=== PATIENT | female | born 1945 | race Caucasian/White ===

== ENCOUNTER 2023-07-03 23:35 | Outpatient (CLI) | payer MEDICARE, OTHER | END 2023-07-03 23:36 | disposition critical access hospital (66) | LOC: EMS 23:35 | DX: R07.9 Chest pain, unspecified (principal) | CPT/HCPCS: A0425; A0427 ==

== ENCOUNTER 2023-07-04 00:05 | Emergency (ER) | payer MEDICARE, OTHER ==
[2023-07-04 00:26] LABS: BASOPHILS # (AUTO) 0.1 10^3/uL (0.0-0.1); BASOPHILS % (AUTO) 0.9 %; EOSINOPHILS # (AUTO) 0.3 10^3/uL (0.0-0.7); EOSINOPHILS % (AUTO) 2.8 %; HCT - HEMATOCRIT 42.9 % (37.0-47.0); HGB - HEMOGLOBIN 13.1 g/dL (12.0-16.0); LYMPHOCYTES # (AUTO) 2.6 10^3/uL (1.5-3.5); LYMPHOCYTES % (AUTO) 29.2 %; MEAN CORPUSCULAR HEMOGLOBIN 29.3 pg (27.0-31.0); MEAN CORPUSCULAR HGB CONC 30.5 g/dL (32.0-36.0); MEAN PLATELET VOLUME 9.3 fL (7.9-10.8); MONOCYTES # (AUTO) 0.9 10^3/uL (0.0-1.0); MONOCYTES % (AUTO) 9.5 %; NEUTROPHILS # (AUTO) 5.2 10^3/uL (1.5-6.6); NEUTROPHILS % (AUTO) 57.3 %; PLT - PLATELET COUNT 283 10^3/uL (130-450); RED BLOOD COUNT 4.47 10^6/uL (4.20-5.40); RED CELL DISTRIBUTION WIDTH 13.5 % (12.0-15.0)
[2023-07-04] MEDS ORDERED: NITROGLYCERIN SL 0.4 MG TABLET SL PRN (00:37)
--- NOTE | 2023-07-04 00:42 | XRAY Report ---
PROCEDURE: Chest 1V INDICATIONS: Chest pain TECHNIQUE: One view of the chest was acquired. COMPARISON: None. FINDINGS: Surgical changes and devices: None. Lungs and pleura: No pleural effusions or pneumothorax. Lungs are clear. Mediastinum: Mediastinal contours appear normal. Heart size is normal. Bones and chest wall: Dystrophic appearance of the left fourth rib. No periosteal reaction. IMPRESSION: No acute cardiopulmonary process. Dystrophic appearance of the left fourth rib, without periosteal reaction. 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 Correlate with pain; if present, consider nonurgent M RI with contrast to exclude other malignant process. Reviewed by: Abhinav Stewart MD on 07/04/2023 12:41 AM PDT Approved by: Abhinav Stewart MD on 07/04/2023 12:41 AM PDT Station ID: [id number]
[2023-07-04 00:53] LABS: ALBUMIN 3.9 g/dL (3.2-5.5); ALBUMIN/GLOBULIN RATIO 1.6 (1.0-2.2); BILIRUBIN,TOTAL 0.4 mg/dL (0.2-1.0); CALCIUM 9.5 mg/dL (8.5-10.3); POTASSIUM 4.2 mmol/L (3.5-4.5); TOTAL PROTEIN 6.3 g/dL (6.4-8.9)
[2023-07-04 01:39] LABS: TROPONIN I HIGH SENSITIVITY 3.1 ng/L (2.3-14.8)
--- NOTE | 2023-07-04 02:27 | ED Physician Documentation ---
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 Patient reports pain started around 11:00 PM as she was working on some paperwork. There is no radiation to the pain. She did take aspirin. EMS gave 2 nitroglycerin. She denies any known exacerbating or alleviating factors. She does report having dull pain 2 days ago lasting approximately 40 minutes. Otherwise has not had other episodes of chest pain. She did recently have COVID in May while she was in [place].At times she has felt short of air. She did recently have a checkup at the [facility] cardiology clinic with an echocardiogram. She has had a prior stress test but it has been some years. She denies history of prior cardiac catheterization. She does have a history of high blood pressure and hyperlipidemia. Denies history of diabetes. Review of Systems Constitutional: denies: Fever Cardiac: reports: Chest pain / pressure Respiratory: reports: Dyspnea. denies: Cough GI: denies: Abdominal Pain : denies: Dysuria Musculoskeletal: denies: Extremity pain PD PAST MEDICAL HISTORY - Past Medical History Past Medical History: Yes - Past Surgical History Past Surgical History: Yes - Present Medications Home Medications: Ambulatory Orders Medication Instructions Recorded Confirmed Ascorbic Acid/Ascorbate Sodium 500 mg PO DAILY 07/04/23 07/04/23 [Vitamin C 500 mg Tablet Chew] Aspirin [[place] Aspirin] 364 mg PO PRN PRN 07/04/23 07/04/23 Atorvastatin [Lipitor] 10 mg PO DAILY 07/04/23 07/04/23 Calcium Carbonate/Vitamin D3 1 each PO DAILY 07/04/23 07/04/23 [Calcium 600-Vit D3 800 Tablet] Carboxymethylcellulose Sodium 1 each OP PRN PRN 07/04/23 07/04/23 [Refresh Plus] Cholecalciferol (Vitamin D3) 50 mcg PO DAILY 07/04/23 07/04/23 [Vitamin D3] Estradiol [Estrace] 42.5 gm VG ONCE 07/04/23 07/04/23 Gabapentin [Neurontin] 100 mg PO TID 07/04/23 07/04/23 Gabapentin [Neurontin] 300 mg PO TID 07/04/23 07/04/23 Levothyroxine [Synthroid] 100 mcg PO QDAC 07/04/23 07/04/23 Omeprazole 20 mg PO BID 07/04/23 07/04/23 Valsartan [Diovan] 160 mg PO QPM 07/04/23 07/04/23 - Allergies Allergies/Adverse Reactions: Allergies Allergy/AdvReac Type Severity Reaction Status Date / Time duloxetine [From Cymbalta] AdvReac Nausea Verified 07/04/23 00:50 meperidine [From Demerol] AdvReac Nausea Verified 07/04/23 00:50 venlafaxine AdvReac Nausea Verified 07/04/23 00:50 - Social History Does the pt smoke?: No Smoking Status: Never smoker Does the pt drink ETOH?: No Does the pt have substance abuse?: No - Immunizations Immunizations are current?: Yes PD ED PE NORMAL - General General: Alert and oriented X 3, No acute distress, Well developed/nourished - HEENT HEENT: Atraumatic - Neck Neck: Supple, no meningeal sign - Cardiac Cardiac: RRR, Strong equal pulses - Respiratory Respiratory: No respiratory distress, Clear bilaterally - Abdomen Abdomen: Soft, Non tender, Non distended - Derm Derm: Warm and dry - Extremities Extremities: No edema - Neuro Neuro: Alert and oriented X 3, Normal speech Results - Vitals Vitals: Vital Signs - 24 hr 07/04/23 07/04/23 07/04/23 00:09 00:13 00:30 Temperature 36.8 C 36.8 C Heart Rate 62 62 66 Respiratory 18 18 14 Rate Blood Pressure 147/63 H 147/63 H O2 Saturation 98 98 97 07/04/23 07/04/23 07/04/23 01:00 01:30 02:00 Temperature Heart Rate 66 63 64 Respiratory 12 16 14 Rate Blood Pressure 121/56 L 129/59 L O2 Saturation 97 96 97 07/04/23 07/04/23 07/04/23 02:30 03:00 03:30 Temperature Heart Rate 61 61 60 Respiratory 14 14 14 Rate Blood Pressure 129/62 120/57 L 129/61 O2 Saturation 98 97 96 07/04/23 03:50 Temperature Heart Rate 64 Respiratory 16 Rate Blood Pressure O2 Saturation 98 Oxygen O2 Source Room air - EKG (time done) 1213 EKG releavant findings:: EKG personally interpreted by author of this note. Relevant findings are: Rate 61, normal sinus rhythm, left bundle branch block, No STEMI, left bundle branch block seen on prior EKG in the care everywhere from [facility] 06/15/2023 - Labs Labs: Laboratory Tests 07/04/23 07/04/23 07/04/23 00:17 00:17 01:32 WBC 9.0 RBC 4.47 Hgb 13.1 Hct 42.9 MCV 96.0 MCH 29.3 MCHC 30.5 L RDW 13.5 Plt Count 283 MPV 9.3 Neut # (Auto) 5.2 Lymph # (Auto) 2.6 [place] # (Auto) 0.9 Eos # (Auto) 0.3 Baso # (Auto) 0.1 Absolute Nucleated RBC 0.00 Nucleated RBC % 0.0 D-Dimer < 200.0 L Sodium 139 Potassium 4.2 Chloride 107 Carbon Dioxide 26 Anion Gap 6.0 BUN 16 Creatinine 1.0 Estimated GFR (MDRD) 54 L Glucose 131 H Calcium 9.5 Total Bilirubin 0.4 AST 15 ALT 10 Alkaline Phosphatase 56 Troponin I High Sens 3.1 Total Protein 6.3 L Albumin 3.9 Globulin 2.4 Albumin/Globulin Ratio 1.6 Lipase 58 07/04/23 02:42 WBC RBC Hgb Hct MCV MCH MCHC RDW Plt Count MPV Neut # (Auto) Lymph # (Auto) Foster # (Auto) Eos # (Auto) Baso # (Auto) Absolute Nucleated RBC Nucleated RBC % D-Dimer Sodium Potassium Chloride Carbon Dioxide Anion Gap BUN Creatinine Estimated GFR (MDRD) Glucose Calcium Total Bilirubin AST ALT Alkaline Phosphatase Troponin I High Sens 4.0 Total Protein Albumin Globulin Albumin/Globulin Ratio Lipase PD Medical Decision Making - ED course Complexity details: reviewed results, re-evaluated patient, d/w patient ED course: Patient is a 77-year-old female presenting for evaluation of chest pain. She does have a history of coarctation of the aorta. EKG is reviewed and nonischemic. CBC, chemistry, D-dimer and troponin were obtained and without significant findings. Patient was pain-free here. Repeat troponin after 2 hours remained unchanged. She is able to ambulate here without any difficulty. Heart score is 4 based on age and risk factors. Vital signs have been stable. 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 0226 - Patient resting comfortably with no pain. Has not required any doses of nitroglycerin here.Reviewed workup thus far including negative high-sensitivity troponin and negative D-dimer. Also reviewed irregularity seen on patient's chest x-ray involving the fourth rib. Patient states she has been told about this before and is able to pull up an old x-ray read on her phone. She states that this is from her prior thoracic surgery when she was a child. I did give her a copy of her chest x-ray report and explained that our radiologist was concerned it could be a type of benign tumor. Departure - Departure Disposition: 01 Home, Self Care Clinical Impression: Chest pain, Abnormal chest xray Condition: Stable Instructions: ED Chest Pain Atypical Unkn Cause Follow-Up: Elizabeth Carmona MD [Physician No Access] - Comments: You were evaluated this evening for chest pain. Your testing tonight does not show signs of heart attack or blood clot in your lungs. There was an ir regularity noticed on your chest x-ray. As we do not have any prior for comparison there is unclear whether this is a new finding or not. I would recommend close follow-up with your food production machine operator as you may need further testing such as a stress test. If you develop any worsening symptoms please return to the emergency department. IMPRESSION: No acute cardiopulmonary process. Dystrophic appearance of the left fourth rib, without periosteal reaction. 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 Correlate with pain; if present, consider nonurgent MRI with contrast to exclude other malignant process. Forms: PCP List Discharge Date/Time: 07/04/23 03:50
[2023-07-04 04:05] VITALS: BP 129/61
[2023-07-04 04:25] VITALS: O2SAT 98
== END 2023-07-04 03:50 | disposition home or self-care (01) ==
LOC: ED 00:05
DX: R07.9 Chest pain, unspecified (principal); R91.8 Other nonspecific abnormal finding of lung field; Q25.1 Coarctation of aorta; Z79.82 Long term (current) use of aspirin; Z79.899 Other long term (current) drug therapy
CPT/HCPCS: 36415; 80053; 83690; 84484; 85025; 85379; 93005; 99283; 99284

== ENCOUNTER 2023-11-07 13:53 | Outpatient (CLI) | payer MEDICARE, OTHER | END 2023-11-07 23:59 | disposition critical access hospital (66) | LOC: EMS 13:53 | DX: R55 Syncope and collapse (principal) | CPT/HCPCS: A0425; A0429 ==

== ENCOUNTER 2023-11-07 14:24 | Emergency (ER) | payer MEDICARE, OTHER ==
--- NOTE | 2023-11-07 15:20 | ED Physician Documentation ---
History of Present Illness - Stated complaint Stated Complaint: NEAR SYNCOPE - Chief complaint Chief Complaint: Neuro - History obtained from History obtained from: Patient, EMS - History of Present Illness Timing: Today Pain level max: 0 Pain level now: 0 - Additonal information Additional information: 78 year old female states that she was eating breakfast today around 1pm. She states she felt lightheaded, dizzy and like she was going to pass out. she took her BP and systolic was in the 70's. She called 911 and was brought here. No chest pain. Feels normal now. Has a heart monitor in place. She states that she has been checking her blood pressure at home. She does have a history of a left bundle branch block. Review of Systems Constitutional: denies: Fever, Chills Respiratory: denies: Cough GI: denies: Vomiting, Diarrhea Skin: denies: Rash Musculoskeletal: denies: Neck pain, Back pain Neurologic: denies: Headache PD PAST MEDICAL HISTORY - Past Medical History Past Medical History: Yes Cardiovascular: Other - Past Surgical History Past Surgical History: Yes - Present Medications Home Medications: Ambulatory Orders Medication Instructions Recorded Confirmed Ascorbic Acid/Ascorbate Sodium 500 mg PO DAILY 07/04/23 07/04/23 [Vitamin C 500 mg Tablet Chew] Aspirin [[place] Aspirin] 364 mg PO PRN PRN 07/04/23 07/04/23 Atorvastatin [Lipitor] 10 mg PO DAILY 07/04/23 07/04/23 Calcium Carbonate/Vitamin D3 1 each PO DAILY 07/04/23 07/04/23 [Calcium 600-Vit D3 800 Tablet] Carboxymethylcellulose Sodium 1 each OP PRN PRN 07/04/23 07/04/23 [Refresh Plus] Cholecalciferol (Vitamin D3) 50 mcg PO DAILY 07/04/23 07/04/23 [Vitamin D3] Estradiol [Estrace] 42.5 gm VG ONCE 07/04/23 07/04/23 Gabapentin [Neurontin] 100 mg PO TID 07/04/23 07/04/23 Gabapentin [Neurontin] 300 mg PO TID 07/04/23 07/04/23 Levothyroxine [Synthroid] 100 mcg PO QDAC 07/04/23 07/04/23 Omeprazole 20 mg PO BID 07/04/23 07/04/23 Valsartan [Diovan] 160 mg PO QPM 07/04/23 07/04/23 - Allergies Allergies/Adverse Reactions: Allergies Allergy/AdvReac Type Severity Reaction Status Date / Time duloxetine [From Cymbalta] AdvReac Nausea Verified 11/07/23 14:43 meperidine [From Demerol] AdvReac Nausea Verified 11/07/23 14:43 venlafaxine AdvReac Nausea Verified 11/07/23 14:43 - Social History Does the pt smoke?: No Smoking Status: Never smoker Does the pt drink ETOH?: No Does the pt have substance abuse?: No - Immunizations Immunizations are current?: Yes PD ED PE NORMAL - Vitals Vital signs reviewed: Yes - General General: Alert and oriented X 3, No acute distress - HEENT HEENT: PERRL, Moist mucous membranes - Neck Neck: Supple, no meningeal sign - Cardiac Cardiac: RRR, No murmur, Strong equal pulses - Respiratory Respiratory: No respiratory distress, Clear bilaterally - Abdomen Abdomen: Soft, Non tender, Non distended - Derm Derm: Warm and dry - Extremities Extremities: No edema, No calf tenderness / cord - Neuro Neuro: Alert and oriented X 3 - Psych Psych: Normal mood, Normal affect Results - Vitals Vitals: Vital Signs - 24 hr 11/07/23 11/07/23 11/07/23 14:43 16:46 18:00 Temperature 36.8 C 36.5 C 36.5 C Heart Rate 66 62 60 Respiratory 16 16 16 Rate Blood Pressure 129/66 133/61 H 130/60 O2 Saturation 100 99 100 Oxygen O2 Source Room air - EKG (time done) 1532 EKG releavant findings:: EKG personally interpreted by author of this note. Relevant findings are: Rate: Rate (enter#) (63) Rhythm: NSR, SANDIP [place]: Normal Intervals: Normal NC QRS: Normal Ischemia: Normal ST segments, Q waves (v1-3) - Labs Labs: Laboratory Tests 11/07/23 11/07/23 11/07/23 15:19 15:19 17:23 WBC 11.0 H RBC 4.94 Hgb 14.7 Hct 47.4 H MCV 96.0 MCH 29.8 MCHC 31.0 L RDW 13.2 Plt Count 259 MPV 9.3 Neut # (Auto) 8.9 H Lymph # (Auto) 1.3 L [place] # (Auto) 0.6 Eos # (Auto) 0.1 Baso # (Auto) 0.1 Absolute Nucleated RBC 0.00 Nucleated RBC % 0.0 Sodium 140 Potassium 4.1 Chloride 103 Carbon Dioxide 33 H Anion Gap 4.0 L BUN 16 Creatinine 0.9 Estimated GFR (MDRD) 61 L Glucose 127 H Calcium 10.0 Total Bilirubin 0.6 AST 16 ALT 13 Alkaline Phosphatase 65 Troponin I High Sens 3.2 3.4 Total Protein 6.7 Albumin 4.2 Globulin 2.5 Albumin/Globulin Ratio 1.7 Lipase 34 - Rads (name of study) cxr Relevant Findings:: Final report received, See rad report PD Medical Decision Making - ED course Complexity details: reviewed results, re-evaluated patient, considered differential (No ST elevation ND, no aortic dissection, no PE, no tension pneumothorax, no aortic aneurysm), d/w patient ED course: Patient is well-appearing, nontoxic. Afebrile. No chest pain. No evidence of PE clinically. No calf tenderness or swelling. No pleuritic chest pain. No hypoxia. No tachycardia. No evidence of ACS. Negative high sensitive troponin x 2. Hypotension with near syncope while standing, consistent with orthostatic hypotension. Feels better after IV fluids here. We will have her follow-up with her doctor for further care. Patient counseled regarding signs and symptoms for which I believe and urgent re-evaluation would be necessary. Patient with good understanding of and agreement to plan and is comfortable goi ng home at this time This document was made in part using voice recognition software. While efforts are made to proofread this document, sound alike and grammatical errors may occur. Departure - Departure Disposition: 01 Home, Self Care Clinical Impression: Orthostatic hypotension, Near syncope Condition: Good Instructions: ED Hypotension Orthostatic, ED Near Syncope Unkn Follow-Up: your,doctor in 1 week [Other] Comments: Please follow-up with your doctor for further care. Make sure you are drinking plenty of fluids at home. Continue current medications. Please return if you worsen. Forms: PCP List Discharge Date/Time: 11/07/23 18:22
[2023-11-07 15:28] LABS: BASOPHILS # (AUTO) 0.1 10^3/uL (0.0-0.1); BASOPHILS % (AUTO) 0.7 %; EOSINOPHILS # (AUTO) 0.1 10^3/uL (0.0-0.7); EOSINOPHILS % (AUTO) 0.6 %; HCT - HEMATOCRIT 47.4 % (37.0-47.0); HGB - HEMOGLOBIN 14.7 g/dL (12.0-16.0); LYMPHOCYTES # (AUTO) 1.3 10^3/uL (1.5-3.5); LYMPHOCYTES % (AUTO) 11.7 %; MEAN CORPUSCULAR HEMOGLOBIN 29.8 pg (27.0-31.0); MEAN PLATELET VOLUME 9.3 fL (7.9-10.8); MONOCYTES # (AUTO) 0.6 10^3/uL (0.0-1.0); MONOCYTES % (AUTO) 5.8 %; NEUTROPHILS # (AUTO) 8.9 10^3/uL (1.5-6.6); NEUTROPHILS % (AUTO) 80.8 %; PLT - PLATELET COUNT 259 10^3/uL (130-450); RED BLOOD COUNT 4.94 10^6/uL (4.20-5.40); RED CELL DISTRIBUTION WIDTH 13.2 % (12.0-15.0)
--- NOTE | 2023-11-07 15:34 | XRAY Report ---
PROCEDURE: Chest 1V INDICATIONS: Chest Pain TECHNIQUE: One view of the chest was acquired. COMPARISON: 07/04/2023. FINDINGS: Surgical changes and devices: None. Lungs and pleura: No pleural effusions or pneumothorax. Lungs are clear. Mediastinum: Mediastinal contours appear normal. Heart size is normal. Bones and chest wall: No suspicious bony lesions. Overlying soft tissues appear unremarkable. IMPRESSION: No acute cardiopulmonary process. Reviewed by: Santana Malik MD on 11/07/2023 3:33 PM PDT Approved by: Santana Malik MD on 11/07/2023 3:33 PM PDT Station ID: [id number]
[2023-11-07 15:40] LABS: ALBUMIN 4.2 g/dL (3.2-5.5); ALBUMIN/GLOBULIN RATIO 1.7 (1.0-2.2); BILIRUBIN,TOTAL 0.6 mg/dL (0.2-1.0); CREATININE 0.9 mg/dL (0.6-1.3); POTASSIUM 4.1 mmol/L (3.5-4.5); TOTAL PROTEIN 6.7 g/dL (6.4-8.9)
[2023-11-07] MEDS: SODIUM CHLORIDE 0.9% 1,000 ML IV STA (15:40)
[2023-11-07 15:44] LABS: TROPONIN I HIGH SENSITIVITY 3.2 ng/L (2.3-14.8)
[2023-11-07 18:24] VITALS: BP 130/60; O2SAT 100
== END 2023-11-07 18:22 | disposition home or self-care (01) ==
LOC: EDUNIT# → ED 14:24
DX: I95.1 Orthostatic hypotension (principal); Z79.899 Other long term (current) drug therapy
CPT/HCPCS: 36415; 80053; 83690; 84484; 85025; 93005; 96360; 96361; 99283